=== PATIENT | female | born 1995 | race Caucasian/White ===

== ENCOUNTER 2016-04-27 15:56 | Emergency (ER) | payer BC, OTHER ==
--- NOTE | 2016-04-27 18:59 | EDDOCDS ---
Nurse's Notes [facility] Name: Rich Becerra Age: 20 yrs Sex: Female : 1995 Arrival Date: 04/27/2016 Time: 15:56 Bed TR8 Private MD: NO PRIMARY PHYSICIAN, . Diagnosis: Acute upper respiratory infections of multiple and unspecified sites;Acute bronchitis Presentation: 04/27 16:05 Presenting complaint: Patient states: since last night she has had left facial pain and kcs right low back pain - also has a harsh cough. Mechanism of Injury: No Mechanism of Injury. Adult Sepsis Screening: The patient does not have new or worsening altered mentation. Patient's respiratory rate is less than 22. Systolic blood pressure is greater than 100. Patient has a qSOFA score of 0- Negative Sepsis Screen. Suicide/Homicide risk assessment- the patient denies having any suicidal and/or homicidal ideations and does not present with any other emotional, behavioral or mental health complaints. 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 Transition of care: patient was not received from another setting of care. 16:05 Acuity: AARON Level 4 kcs 16:05 Method Of Arrival: Walkin/Carried/Asstd kcs 18:58 Acute neurological deficits are not present. aa3 Triage Assessment: 16:07 General: Appears comfortable, well developed, well nourished, well groomed, Behavior is kcs cooperative, pleasant. Pain: Location: left face = 8/10 and right low back = 8/10. Pt Declines HIV testing. Neurological: Level of Consciousness is awake, alert. Respiratory: Airway is patent Respiratory effort is even, unlabored, Respiratory pattern is regular, symmetrical. Derm: Skin is intact, is healthy with good turgor, Skin is dry, Skin is normal. 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 none - PMHx: Asthma; - PSHx: Appendectomy; Arthroscopy, Knee- Right; - Social history: Smoking status: Patient uses tobacco products, light tobacco smoker. No barriers to communication noted, The patient speaks fluent British. - Family history: Not pertinent. - : The pt / caregiver states he / she is not on anticoagulants. Home medication list is obtained from the patient. - Exposure Risk Screening:: None identified. Screenin:55 Screening information is obtained from the patient. Fall risk: No risks identified. aa3 Assistance ADL's: requires no assistance with activities of daily living. Abuse/DV Screen: The patient / caregiver reports he/she is: not in a situation that causes fear, pain or injury. Nutritional screening: No deficits noted. Advance Directives: Currently, there is no health care proxy. There is no active DNR order. home support is adequate. Assessment: 18:55 General: Appears in no apparent distress, comfortable, Behavior is appropriate for age, aa3 cooperative. Neurological: Level of Consciousness is awake, alert, Oriented to person, place, time. Cardiovascular: Capillary refill < 3 seconds. Respiratory: Airway is patent Respiratory effort is even, unlabored, Respiratory pattern is regular, symmetrical. Musculoskeletal: No deficits noted. Vital Signs: 15:58 BP 127 / 73; Pulse 108; Resp 18 S; Temp 99.6(O); Pulse Ox 97% on R/A; Weight 74.84 kg gr2 (M); Height 5 ft. 3 in. (160.02 cm) (R); Pain 5/10; 18:55 BP 129 / 72; Pulse 98; Resp 18 S; Temp 98.3(TE); Pulse Ox 99% ; Pain 5/10; aa3 15:58 Body Mass Index 29.23 (74.84 kg, 160.02 cm) gr2 Vitals: 15:58 Log In Time: April 27, 2016 at 15:58. gr2 ED Course: 15:57 Patient visited by Elsy Ferreira. gr2 15:57 Patient moved to Waiting gr2 15:58 NO PRIMARY PHYSICIAN, . is Private Physician. gr2 16:01 Patient visited by Elsy Ferreira. gr2 16:01 Patient moved to Pre RCE gr2 16:06 Triage Initiated kcs 18:12 Patient moved to Triage 1 ms18 18:32 Patient visited by Lisa Ireland RN. ms18 18:39 [facility] Mac[facility]C [facility] cc10 18:39 Heidi Monroe MD is Attending Physician. cc10 18:39 Patient visited by Chalo Macario PA-C. cc10 18:39 Patient visited by Chalo Macario PA-C. cc10 18:46 [facility] is Referral Physician. cc10 18:55 The patient / caregiver is instructed regarding the plan of care and ED course. aa3 18:55 No IV's were initiated during this patient's visit. No procedures done that require aa3 assistance. 18:56 Patient moved to TR8 ms18 Order Results: There are currently no results for this order. Outcome: 18:46 Discharge ordered by Provider. cc10 18:57 Discharge Assessment: Patient awake, alert and oriented x 3. No cognitive and/or aa3 functional deficits noted. Patient verbalized understanding of disposition instructions. Patient patient administered narcotics - no. The following High Risk Discharge criteria are identified: None. Discharged to home ambulatory, with significant other. Condition: good. Discharge instructions given to patient, Instructed on discharge instructions, follow up and referral plans. medication usage, Demonstrated understanding of instructions, medications, Pt was receptive of discharge instructions/ teaching. Prescriptions given X 3. No special radiology studies were completed. Property :Personal belongings accompany Pt. 18:58 Patient left the ED. aa3 Signatures: Nicole Ibarra, RN RN [facility] [place] Elsy Ferreira gr2 Salima Garcia RN RN aa3 Chalo Macario PA-C PA-C cc10 Lisa Ireland,EVELIO RN ms18 MTDD
--- NOTE | 2016-04-27 18:59 | EDDOCDS ---
Physician Documentation [facility] Name: Rich Becerra Age: 20 yrs Sex: Female : 1995 Arrival Date: 04/27/2016 Time: 15:56 Bed TR8 Private MD: NO PRIMARY PHYSICIAN, . Disposition: 04/27/16 18:46 Discharged to Home/Self Care. Impression: Acute upper respiratory infections of multiple and unspecified sites, Acute bronchitis. - Condition is Stable. - Discharge Instructions: Acute Bronchitis, Upper Respiratory Infection, Adult. - Prescriptions for Prednisone 20 mg Oral Tablet - take 1 tablet by ORAL route once daily for 5 days; 5 tablet. benzonatate 200 mg Oral Capsule - take 1 capsule by ORAL route 3 times per day As needed; 30 capsule. Albuterol Sulfate 90 mcg/actuation Inhalation HFA Aerosol Inhaler - inhale 2 puff by INHALATION route every 4 hours As needed; 1 Inhaler. - Medication Reconciliation form. - Follow up: [facility]; When: Call to arrange an appointment; Reason: Wound/Symptom Recheck, Recheck today's complaints, Worsening of conditions, Continuance of care, To establish care. - Problem is an ongoing problem. - Symptoms are unchanged. - Notes: take tylenol as needed for pain. Historical: - Allergies: No known drug Allergies; - Home Meds: 1. none - PMHx: Asthma; - PSHx: Appendectomy; Arthroscopy, Knee- Right; - Social history: Smoking status: Patient uses tobacco products, light tobacco smoker. No barriers to communication noted, The patient speaks fluent Bulgarian. - Family history: Not pertinent. - : The pt / caregiver states he / she is not on anticoagulants. Home medication list is obtained from the patient. - Exposure Risk Screening:: None identified. 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 3 in. (160.02 cm) (R); Pain 5/10; 18:55 BP 129 / 72; Pulse 98; Resp 18 S; Temp 98.3(TE); Pulse Ox 99% ; Pain 5/; aa3 15:58 Body Mass Index 29.23 (74.84 kg, 160.02 cm) gr2 Signatures: Nicole Ibarra RN RN kcs Salima Garcia RN RN aa3 Chalo Macario, PACrystalC PA-C cc10 MTDD
--- NOTE | 2016-04-29 19:59 | EDDOCDS ---
Nurse's Notes [facility] Name: Rich Becerra Age: 20 yrs Sex: Female : 1995 Arrival Date: 04/27/2016 Time: 15:56 Bed TR8 Private MD: NO PRIMARY PHYSICIAN, . Diagnosis: Acute upper respiratory infections of multiple and unspecified sites;Acute bronchitis Presentation: 04/27 16:05 Presenting complaint: Patient states: since last night she has had left facial pain and kcs right low back pain - also has a harsh cough. Mechanism of Injury: No Mechanism of Injury. Adult Sepsis Screening: The patient does not have new or worsening altered mentation. Patient's respiratory rate is less than 22. Systolic blood pressure is greater than 100. Patient has a qSOFA score of 0- Negative Sepsis Screen. Suicide/Homicide risk assessment- the patient denies having any suicidal and/or homicidal ideations and does not present with any other emotional, behavioral or mental health complaints. 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 Transition of care: patient was not received from another setting of care. 16:05 Acuity: AARON Level 4 kcs 16:05 Method Of Arrival: Walkin/Carried/Asstd kcs 18:58 Acute neurological deficits are not present. aa3 Triage Assessment: 16:07 General: Appears comfortable, well developed, well nourished, well groomed, Behavior is kcs cooperative, pleasant. Pain: Location: left face = 8/10 and right low back = 8/10. Pt Declines HIV testing. Neurological: Level of Consciousness is awake, alert. Respiratory: Airway is patent Respiratory effort is even, unlabored, Respiratory pattern is regular, symmetrical. Derm: Skin is intact, is healthy with good turgor, Skin is dry, Skin is normal. 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 none - PMHx: Asthma; - PSHx: Appendectomy; Arthroscopy, Knee- Right; - Social history: Smoking status: Patient uses tobacco products, light tobacco smoker. No barriers to communication noted, The patient speaks fluent Guamanian. - Family history: Not pertinent. - : The pt / caregiver states he / she is not on anticoagulants. Home medication list is obtained from the patient. - Exposure Risk Screening:: None identified. Screenin:55 Screening information is obtained from the patient. Fall risk: No risks identified. aa3 Assistance ADL's: requires no assistance with activities of daily living. Abuse/DV Screen: The patient / caregiver reports he/she is: not in a situation that causes fear, pain or injury. Nutritional screening: No deficits noted. Advance Directives: Currently, there is no health care proxy. There is no active DNR order. home support is adequate. Assessment: 18:55 General: Appears in no apparent distress, comfortable, Behavior is appropriate for age, aa3 cooperative. Neurological: Level of Consciousness is awake, alert, Oriented to person, place, time. Cardiovascular: Capillary refill < 3 seconds. Respiratory: Airway is patent Respiratory effort is even, unlabored, Respiratory pattern is regular, symmetrical. Musculoskeletal: No deficits noted. Vital Signs: 15:58 BP 127 / 73; Pulse 108; Resp 18 S; Temp 99.6(O); Pulse Ox 97% on R/A; Weight 74.84 kg gr2 (M); Height 5 ft. 3 in. (160.02 cm) (R); Pain 5/10; 18:55 BP 129 / 72; Pulse 98; Resp 18 S; Temp 98.3(TE); Pulse Ox 99% ; Pain 5/10; aa3 15:58 Body Mass Index 29.23 (74.84 kg, 160.02 cm) gr2 Vitals: 15:58 Log In Time: April 27, 2016 at 15:58. gr2 ED Course: 15:57 Patient visited by Elsy Ferreira. gr2 15:57 Patient moved to Waiting gr2 15:58 NO PRIMARY PHYSICIAN, . is Private Physician. gr2 16:01 Patient visited by Elsy Ferreira. gr2 16:01 Patient moved to Pre RCE gr2 16:06 Triage Initiated kcs 18:12 Patient moved to Triage 1 ms18 18:32 Patient visited by Lisa Ireland RN. ms18 18:39 Chalo Macario PA-C is [facility]. cc10 18:39 Heidi Monroe MD is Attending Physician. cc10 18:39 Patient visited by Chalo Macario PA-C. cc10 18:39 Patient visited by Chalo Macario PA-C. cc10 18:46 [facility] is Referral Physician. cc10 18:55 The patient / caregiver is instructed regarding the plan of care and ED course. aa3 18:55 No IV's were initiated during this patient's visit. No procedures done that require aa3 assistance. 18:56 Patient moved to TR8 ms18 04/28 13:56 T-Sheet-- Draft Copy was scanned into [employer] and attached to record. gb Order Results: There are currently no results for this order. Outcome: 04/27 18:46 Discharge ordered by Provider. cc10 18:57 Discharge Assessment: Patient awake, alert and oriented x 3. No cognitive and/or aa3 functional deficits noted. Patient verbalized understanding of disposition instructions. Patient patient administered narcotics - no. The following High Risk Discharge criteria are identified: None. Discharged to home ambulatory, with significant other. Condition: good. Discharge instructions given to patient, Instructed on discharge instructions, follow up and referral plans. medication usage, Demonstrated understanding of instructions, medications, Pt was receptive of discharge instructions/ teaching. Prescriptions given X 3. No special radiology studies were completed. Property :Personal belongings accompany Pt. 18:58 Patient left the ED. aa3 Signatures: Nicole Ibarra, RN RN kcs Dahiana Thornton, Reg Reg gb Elsy Ferreira gr2 Salima Garcia,EVELIO RN aa3 Chalo Macario PA-C PA-C cc10 Smith, Mallory,EVELIO RN ms18 Chart Complete MTDD
--- NOTE | 2016-04-29 19:59 | EDDOCDS ---
Physician Documentation [facility] Name: Rich Becerra Age: 20 yrs Sex: Female : 1995 Arrival Date: 04/27/2016 Time: 15:56 Bed TR8 Private MD: NO PRIMARY PHYSICIAN, . Disposition: 04/27/16 18:46 Discharged to Home/Self Care. Impression: Acute upper respiratory infections of multiple and unspecified sites, Acute bronchitis. - Condition is Stable. - Discharge Instructions: Acute Bronchitis, Upper Respiratory Infection, Adult. - Prescriptions for Prednisone 20 mg Oral Tablet - take 1 tablet by ORAL route once daily for 5 days; 5 tablet. benzonatate 200 mg Oral Capsule - take 1 capsule by ORAL route 3 times per day As needed; 30 capsule. Albuterol Sulfate 90 mcg/actuation Inhalation HFA Aerosol Inhaler - inhale 2 puff by INHALATION route every 4 hours As needed; 1 Inhaler. - Medication Reconciliation form. - Follow up: [facility]; When: Call to arrange an appointment; Reason: Wound/Symptom Recheck, Recheck today's complaints, Worsening of conditions, Continuance of care, To establish care. - Problem is an ongoing problem. - Symptoms are unchanged. - Notes: take tylenol as needed for pain. Historical: - Allergies: No known drug Allergies; - Home Meds: 1. none - PMHx: Asthma; - PSHx: Appendectomy; Arthroscopy, Knee- Right; - Social history: Smoking status: Patient uses tobacco products, light tobacco smoker. No barriers to communication noted, The patient speaks fluent Dutch. - Family history: Not pertinent. - : The pt / caregiver states he / she is not on anticoagulants. Home medication list is obtained from the patient. - Exposure Risk Screening:: None identified. 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 3 in. (160.02 cm) (R); Pain 5/10; 18:55 BP 129 / 72; Pulse 98; Resp 18 S; Temp 98.3(TE); Pulse Ox 99% ; Pain 5/10; aa3 15:58 Body Mass Index 29.23 (74.84 kg, 160.02 cm) gr2 MDM: 04/28 13:56 T-Sheet-- Draft Copy was scanned into [employer] and attached to record. gb Signatures: Nicole Ibarra, EVELIO RN kcs Dahiana Thornton, Reg Reg gb Salima Garcia RN RN aa3 Chalo Macario, PACrystalC PALloyd cc10 The chart was reviewed and I authenticate all verbal orders and agree with the evaluation and treatment provided.Attachments: 13:56 T-Sheet-- Draft Copy gb Chart Complete MTDD
--- NOTE | 2016-04-29 19:59 | EDDOCDS ---
Physician Documentation [facility] Name: Rich Becerra Age: 20 yrs Sex: Female : 1995 Arrival Date: 04/27/2016 Time: 15:56 Bed TR8 Private MD: NO PRIMARY PHYSICIAN, . Disposition: 04/27/16 18:46 Discharged to Home/Self Care. Impression: Acute upper respiratory infections of multiple and unspecified sites, Acute bronchitis. - Condition is Stable. - Discharge Instructions: Acute Bronchitis, Upper Respiratory Infection, Adult. - Prescriptions for Prednisone 20 mg Oral Tablet - take 1 tablet by ORAL route once daily for 5 days; 5 tablet. benzonatate 200 mg Oral Capsule - take 1 capsule by ORAL route 3 times per day As needed; 30 capsule. Albuterol Sulfate 90 mcg/actuation Inhalation HFA Aerosol Inhaler - inhale 2 puff by INHALATION route every 4 hours As needed; 1 Inhaler. - Medication Reconciliation form. - Follow up: [facility]; When: Call to arrange an appointment; Reason: Wound/Symptom Recheck, Recheck today's complaints, Worsening of conditions, Continuance of care, To establish care. - Problem is an ongoing problem. - Symptoms are unchanged. - Notes: take tylenol as needed for pain. Historical: - Allergies: No known drug Allergies; - Home Meds: 1. none - PMHx: Asthma; - PSHx: Appendectomy; Arthroscopy, Knee- Right; - Social history: Smoking status: Patient uses tobacco products, light tobacco smoker. No barriers to communication noted, The patient speaks fluent [place]. - Family history: Not pertinent. - : The pt / caregiver states he / she is not on anticoagulants. Home medication list is obtained from the patient. - Exposure Risk Screening:: None identified. 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 3 in. (160.02 cm) (R); Pain 5/10; 18:55 BP 129 / 72; Pulse 98; Resp 18 S; Temp 98.3(TE); Pulse Ox 99% ; Pain 5/10; aa3 15:58 Body Mass Index 29.23 (74.84 kg, 160.02 cm) gr2 MDM: 04/28 13:56 T-Sheet-- Draft Copy was scanned into [employer] and attached to record. gb Signatures: Nicole Ibarra, EVELIO RN kcs Dahiana Thornton, Reg Reg gb Salima Garcia RN RN aa3 Chalo Macario, PACrystalC PALloyd cc10 The chart was reviewed and I authenticate all verbal orders and agree with the evaluation and treatment provided.Attachments: 13:56 T-Sheet-- Draft Copy gb Chart Complete MTDD
[2016-06-09] MEDS ORDERED: unknown antibiotic (14:50)
[2016-06-09] MEDS ORDERED: TRAM50TA2 PO (17:39)
[2016-06-09] MEDS ORDERED: BACT800T5 PO (17:39)
== END 2016-04-27 18:58 | disposition home or self-care (01) ==
LOC: M ED 15:56
DX: J20.9 Acute bronchitis, unspecified (principal); J06.9 Acute upper respiratory infection, unspecified; M54.5 Low back pain; J45.909 Unspecified asthma, uncomplicated; F17.210 Nicotine dependence, cigarettes, uncomplicated

== ENCOUNTER 2016-05-25 12:08 | Inpatient (IN) | payer BC, OTHER ==
[~2016-05-25] VITALS: Ht 160 cm; Wt 86.2 kg
[2016-05-25] MEDS ORDERED: ONDANSETRON 4MG/2ML VIAL (J2405) IV ONE ×3 (12:45→16:45)
[2016-05-25] MEDS ORDERED: MORPHINE 4 MG/ML 1ML SYRINGE IV ONE ×2 (12:45→15:30)
[2016-05-25] MEDS ORDERED: NS 1,000 ML IV ONE ×2 (13:00→16:30)
[2016-05-25] MEDS ORDERED: KETOROLAC 30 MG/ML VIAL (J1885) IV ONE (13:15)
[2016-05-25 13:34] LABS: BASO # 0.1 K/mm3 (0.0-0.2); BASO % 0.6 % (0.0-1.0); EOS # 0.2 K/mm3 (0.0-0.50); EOS % 1.8 % (0.0-3.0); LARGE UNSTAINED CELL # 0.2 K/mm3 (0.0-0.4); LARGE UNSTAINED CELL % 1.6 % (0.0-4.0); LYMPH # 1.6 K/mm3 (1.5-6.5); LYMPH % 14.6 % (24.0-44.0); MEAN CORPUSCULAR HEMOGLOBIN 29.3 pg (27.0-33.0); MEAN CORPUSCULAR VOLUME 88.7 fl (80.0-96.0); MONO # 0.4 K/mm3 (0.0-0.8); MONO % 3.4 % (0.0-5.0); NEUTROPHILS # 8.4 K/mm3 (1.8-7.7); PLATELET COUNT, AUTOMATED 152 k/mm3 (150-450); RED CELL DISTRIBUTION WIDTH 14.1 % (11.5-14.5); WHITE BLOOD COUNT 10.7 K/mm3 (4.0-10.0)
[2016-05-25 13:59] LABS: ALBUMIN 3.6 GM/DL (3.2-5.2); ALKALINE PHOSPHATASE 88 U/L (45-117); ALT/SGPT 52 U/L (12-78); ANION GAP 8 MEQ/L (8-16); AST/SGOT 31 U/L (15-37); BILIRUBIN,TOTAL 0.5 MG/DL (0.2-1.0); BLOOD UREA NITROGEN 6 MG/DL (7-18); CALCIUM LEVEL 7.8 MG/DL (8.5-10.1); CARBON DIOXIDE LEVEL 21 MEQ/L (21-32); CHLORIDE LEVEL 110 MEQ/L (98-107); CREATININE FOR GFR 0.79 MG/DL (0.55-1.02); GLOMERULAR FILTRATION RATE > 60.0 (>60); GLUCOSE, FASTING 113 MG/DL (70-105); POTASSIUM SERUM 4.3 MEQ/L (3.5-5.1); SODIUM LEVEL 139 MEQ/L (136-145); TOTAL PROTEIN 7.2 GM/DL (6.4-8.2)
--- NOTE | 2016-05-25 14:07 | REP ---
Clinical: Right flank pain. Findings: Mild right-sided obstructive uropathy including edematous enlargement to the right kidney with mild perinephric and periureteral stranding as well as hydroureteronephrosis is secondary to a 3 mm calculus in the distal right ureter (images 121 - 122). A 2 mm nonobstructing right intrarenal calculus is also identified (image 62). The left kidney and ureter as well as bladder appear normal. Liver, spleen, pancreas, gallbladder, bilateral adrenal glands are normal for noncontrast evaluation. The enteric system is without obstruction or acute inflammatory process. Evidence for prior appendectomy. Pelvis demonstrates normal bladder and age-appropriate uterus/adnexa. No pelvic fluid or ascites. No obvious adenopathy. No free air. Abdominal aorta without aneurysm. Musculoskeletal structures are intact. Lung bases are clear. Impression: Mild acute right-sided obstructive uropathy with a 3 mm calculus in the distal right ureter and 2 mm nonobstructing calculus in the right kidney. Normal left kidney/ureter and bladder. Signed by Tevin Robledo MD 05/25/2016 01:59 P
[2016-05-25] MEDS ORDERED: TAMSULOSIN 0.4 MG CAP PO ONE (15:15)
[2016-05-25] MEDS ORDERED: PHENAZOPYRIDINE 100 MG TAB PO ONE (15:15)
[2016-05-25] MEDS ORDERED: NITROFURANTOIN (MACROBID) 100 MG CAP PO ONE (15:15)
[2016-05-25] MEDS ORDERED: FLOM5CAP PO (15:17)
[2016-05-25] MEDS ORDERED: cefTRIAXone SOD 1 GM in D5W MINI-BAG PLUS 50 ML IV ONE (16:30)
[2016-05-25] MEDS ORDERED: ACETAMINOPHEN 325 MG TAB PO ONE (16:30)
[2016-05-25] MEDS ORDERED: METOCLOPRAMIDE INJ 10MG/2ML VIAL (J2765) IV ONE (16:45)
[2016-05-25] MEDS ORDERED: MORPHINE 2 MG/ML 1ML SYRINGE IV PRN (18:00)
[2016-05-25] MEDS ORDERED: PERCOCET 5MG/325MG TAB PO PRN ×2 (18:00→21:15)
[2016-05-25] MEDS ORDERED: ACETAMINOPHEN TAB 650MG DOSE (2X325MG) PO PRN (18:00)
[2016-05-25] MEDS ORDERED: ONDANSETRON 4MG/2ML VIAL (J2405) IV PRN ×3 (18:00→21:30)
[2016-05-25] MEDS ORDERED: IPRATROPIUM 0.5MG/ALBUTEROL 2.5MG INH SOL UD 3ML (DUONEB)(J7620) NEB PRN (18:15)
[2016-05-25] MEDS: NS 1,000 ML IV SCH ×2 (18:30→22:21)
[2016-05-25] MEDS ORDERED: fentaNYL 250 MCG/5 ML INJECTION (J3010) As Ordered ONE (19:43)
[2016-05-25] MEDS ORDERED: LIDOCAINE 2% INJ 100 MG/5 ML SDV (FOR ANES.) As Ordered ONE (19:43)
[2016-05-25] MEDS ORDERED: dexameTHASONE 4 MG/ML 1ML VIAL (J1100) As Ordered ONE ×2 (19:43→19:44)
[2016-05-25] MEDS ORDERED: PROPOFOL 200 MG/20 ML VIAL As Ordered ONE (19:43)
[2016-05-25] MEDS ORDERED: MIDAZOLAM INJ 2 MG/2 ML VIAL (J2250) As Ordered ONE (19:43)
[2016-05-25] MEDS ORDERED: CONRAY-60 60% 50ML VIAL (Q9961) As Ordered ONE (19:49)
[2016-05-25] MEDS ORDERED: GENTAMICIN SULF INJ 80MG/2ML VIAL (J1580) As Ordered ONE (20:08)
[2016-05-25] MEDS ORDERED: ONDANSETRON 4MG/2ML VIAL (J2405) As Ordered ONE ×2 (20:21→21:28)
[2016-05-25] MEDS ORDERED: PHENYLephrine HCL 500 MCG/5 ML (100MCG/ML) SYRINGE (J2370) As Ordered ONE (20:22)
[2016-05-25] MEDS: MEPERIDINE INJ 25 MG/ML VIAL (J2175) IV PRN ×2 (20:35→20:50)
[2016-05-25] MEDS ORDERED: MEPERIDINE INJ 25 MG/ML VIAL (J2175) As Ordered ONE (20:39)
[2016-05-25] MEDS ORDERED: SENOKOT S TAB PO SCH (21:00)
[2016-05-25 21:13] LABS: MEAN CORPUSCULAR HEMOGLOBIN 30.5 pg (27.0-33.0); MEAN CORPUSCULAR HGB CONC 33.9 g/dl (32.0-36.5); MEAN CORPUSCULAR VOLUME 89.9 fl (80.0-96.0); WHITE BLOOD COUNT 9.8 K/mm3 (4.0-10.0)
[2016-05-25] MEDS ORDERED: LR 1,000 ML IV SCH (21:15)
[2016-05-25] MEDS ORDERED: fentaNYL 100 MCG/2 ML INJECTION (J3010) IV PRN (21:15)
[2016-05-25] MEDS ORDERED: MORPHINE 4 MG/ML 1ML SYRINGE IV PRN (21:30)
[2016-05-25] MEDS ORDERED: oxyCODONE 5MG TAB PO PRN (21:30)
[2016-05-25] MEDS ORDERED: SODIUM CHLORIDE 0.9% 1000 ML IV ONE (21:45)
[2016-05-25] MEDS ORDERED: ACETAMINOPHEN TAB 650MG DOSE (2X325MG) As Ordered ONE (21:46)
[2016-05-25 21:54] LABS: CALCIUM LEVEL 7.4 MG/DL (8.5-10.1); GLOMERULAR FILTRATION RATE 51.4 (>60); POTASSIUM SERUM 3.7 MEQ/L (3.5-5.1)
--- NOTE | 2016-05-25 22:01 | RO ---
DATE OF PROCEDURE: 05/25/2016 PREPROCEDURE DIAGNOSIS: Right hydronephrosis, right distal ureteral stone and sepsis. POSTPROCEDURE DIAGNOSIS: Right hydronephrosis, right distal ureteral stone and sepsis. PROCEDURE: Cystoscopy, right retrograde pyelogram, right double J stent, #6-Bruneian [place] Cook. SURGEON: Dr. Dago Jiménez COMMUNITY DEVELOPMENT OFFICER: Vel Marie, PGY-3, resident urology. ANESTHESIA: General. FINDINGS: Right hydronephrosis. Right distal ureteral stone, 3 mm in diameter, and purulent urine coming out through the right ureter after catheterization. COMPLICATIONS: None. ESTIMATED BLOOD LOSS: N/A. HISTORY OF THE PRESENT ILLNESS: This is a 20-year-old female patient with fever, 102, nausea and vomiting. She has severe right flank pain. She has a stone in the distal ureter with right hydronephrosis. For this reason she was taken to the OR as an emergency and she consented for cystoscopy, right retrograde pyelogram, right double J stent, #6-Bruneian, [place] Cook. DESCRIPTION OF PROCEDURE: With the patient under general anesthesia in supine modified low lithotomy position, after prepping and draping the area of concern, which included the entire genitalia and abdomen, we started by introducing a #23-Bruneian cystoscope with a 30-degree lens. The urethra and bladder neck were totally normal. The bladder had no tumors, no stones, no foreign objects. Both ureteral orifices were seen. We then placed a #5-Bruneian Pollack catheter into the right ureteral orifice and did a retrograde pyelogram. We could see dilated right ureter and kidney. For this reason, we passed a guidewire up to the kidney and passed the Pollack catheter up to the renal pelvis. We collected a urine sample for actually sending it for a urine culture of the right renal pelvis urine. The urine was hematuric and also with some aspect of infection and pus. For this reason we then proceeded to actually take the Pollack catheter out, leaving the guidewire behind. Following the guidewire we decided to place a right double J stent, #6-Bruneian [place] Cook up to the kidney. Once the stent was in good position we took the guidewire out and we could see the curl in the kidney and the curl in the bladder. We emptied the bladder and took the cystoscope out. PLAN: The patient will be admitted by the hospitalist service, Dr. Scruggs. She will receive IV antibiotics until she has no fevers at all. Once the urine cultures and sensitivities come out she will receive specific antibiotic therapy. Once she has no fevers, she will be able to be discharged home with oral antibiotic and followup at [facility] with Dr. Dago Jiménez, myself. At that moment in time, once she has a urine culture negative and she is off this septic episode from urosepsis, we will do treatment of the right distal stone and the right kidney stone at that moment in time electively. There were no complications during surgery.
[2016-05-25 22:07] LABS: CREATININE FOR GFR 1.38 MG/DL (0.55-1.02)
[2016-05-25 23:15] VITALS: BP 120/53
[2016-05-25 23:45] VITALS: BP 112/54
[2016-05-26] VITALS (9 sets, daily range): BP systolic 98–125; BP diastolic 53–67
[2016-05-26] MEDS: ACETAMINOPHEN 650MG ER TAB (TYLENOL ARTHRITIS) PO SCH ×4 (00:34→21:23)
[2016-05-26] MEDS ORDERED: POTASSIUM CHLORIDE 10 MEQ SR TABLET PO ONE (04:00)
[2016-05-26 04:44] LABS: MEAN CORPUSCULAR HEMOGLOBIN 29.2 pg (27.0-33.0); MEAN CORPUSCULAR HGB CONC 32.7 g/dl (32.0-36.5); MEAN CORPUSCULAR VOLUME 89.4 fl (80.0-96.0); RED CELL DISTRIBUTION WIDTH 14.4 % (11.5-14.5); WHITE BLOOD COUNT 20.8 K/mm3 (4.0-10.0)
[2016-05-26 05:06] LABS: ANION GAP 8 MEQ/L (8-16); BLOOD UREA NITROGEN 7 MG/DL (7-18); CALCIUM LEVEL 6.7 MG/DL (8.5-10.1); CARBON DIOXIDE LEVEL 24 MEQ/L (21-32); CHLORIDE LEVEL 112 MEQ/L (98-107); CREATININE FOR GFR 1.17 MG/DL (0.55-1.02); GLOMERULAR FILTRATION RATE > 60.0 (>60); GLUCOSE, FASTING 167 MG/DL (70-105); MAGNESIUM LEVEL 1.6 MG/DL (1.8-2.4); POTASSIUM SERUM 3.9 MEQ/L (3.5-5.1); SODIUM LEVEL 144 MEQ/L (136-145)
[2016-05-26] MEDS: CEFEPIME HCL 2 GM in D5W MINI-BAG PLUS 50 ML IV SCH ×2 (05:11→18:08)
[2016-05-26] MEDS ORDERED: NS 1,000 ML IV ONE (06:30)
[2016-05-26] MEDS ORDERED: MAG SULF 1GM/100ML (MAG RUN) 1 GM in APPROPRIATE DILUENT 1 EA IV ONE ×2 (06:30→13:15)
--- NOTE | 2016-05-26 07:57 | REP ---
Clinical: Hydronephrosis. Stent placement. Technique: Intraoperative fluoroscopic images during retrograde pyelogram and stent placement. Findings: Two intraoperative fluoroscopic images demonstrate mild right-sided hydroureteronephrosis without obvious obstructing lesion. Final image demonstrates a right ureteral stent extending from the kidney to the bladder. Total fluoroscopic time 1 minute 10 seconds. Impression: Mild right-sided hydronephrosis status post right ureteral stent placement. Signed by Tevin Robledo MD 05/26/2016 07:49 A
[2016-05-26] MEDS: NS 1,000 ML IV SCH ×3 (08:37→21:23)
[2016-05-26] MEDS: PANTOPRAZOLE 40MG INJ (PROTONIX) (C9113) IV SCH (09:08)
--- NOTE | 2016-05-26 13:11 | IPNPDOC ---
Date Seen The patient was seen on 05/26/16. Progress Note At the time of this note there is no H&P available in the chart SUBJECTIVE: Patient tells me that her pain is improved but not completely resolved she otherwise denies any other complaints she denies fevers chills chest pain nausea vomiting OBJECTIVE PHYSICAL EXAMINATION: VITAL SIGNS: Please see below. GENERAL: Tired young female in no acute distress HEENT: Pupils are equally round reactive to light she has moist pedis membranes CARDIOVASCULAR: S1-S2. RESPIRATORY: Good auscultation. ABDOMINAL: No CVA tenderness mild suprapubic tenderness bowel sounds present abdomen soft EXTREMITIES: No Cyanosis or edema LABORATORY DATA: Leukocytosis improved thrombocytopenia Please see below. MICROBIOLOGY: Please see below. IMAGING: CT scan at time of admission: Mild acute right-sided obstructive uropathy with a 3 mm calculus in the distal right ureter and 2 mm nonobstructing calculus in the right kidney. Normal left kidney/ureter and bladder. DVT prophylaxis ordered?: Sequentials teds early ambulation ASSESSMENT AND PLAN: This is a 20-year-old female with right-sided hydronephrosis with obstructive uropathy and sepsis secondary urinary source. PROBLEMS: 1. Severe Sepsis secondary to urinary source: The patient was taken to the OR by urology whose help is appreciated stent was placed the patient's renal function is improving we'll continue with IV fluids lactic acidosis resolving she is afebrile we will follow up her cultures and narrow antibiotic spectrum as appropriate. We'll continue monitor closely I suspect the patient may may be able to be transition to by mouth antibiotics and discharge within the next 48- 72 hours with close follow-up with urology. DISPOSITION: We'll continue to monitor closely. VS, I&O, 24H, Fishbone Vital Signs/I&O Vital Signs Date Time Temp Pulse Resp B/P Pulse Ox O2 Delivery O2 Flow Rate FiO2 05/26/16 12:00 98.0 73 20 113/57 97 Room Air 05/26/16 08:00 2.0 I&O- Last 24 Hours up to 6 AM 05/26/16 06:00 Intake Total 3420 ml Output Total 1855 ml Balance 1565 ml Laboratory Data 24H LABS Laboratory Tests 2 05/25/16 13:41: Urine Amorphous Sediment , Urine Appearance TURBIDH, Urine Color MARIELA, Urine pH 5.0, Urine Specific [place] 1.025, Urine Protein 1+H, Urine Glucose (UA) NEGATIVE, Urine Ketones TRACEH, Urine Urobilinogen 0.2, Urine Bilirubin NEGATIVE , Urine Leukocyte Esterase 3+H, Urine Bacteria (Auto) 3+H, Urine Blood 1+H, Urine Calcium Carbonate Cryst(Auto) , Urine Calcium Oxalate Cryst (Auto) , Urine Calcium Phosphate Cristela (Auto) , Urine Cellular Casts , Urine Cystine Crystals , Urine Granular Casts (Auto) , Urine Hyaline Casts (Auto) 0, Urine Leucine Crystals , Urine Mucus (Auto) LARGE, Urine Nitrite POSITIVE, Urine Oval Fat Bodies (Auto) , Urine RBC (Auto) 14H, Urine Renal Epithelial Cells , Urine Sperm (Auto) , Urine Squamous Epithelial Cells 89, Urine Transitional Epithelial Cells , Urine Trichomonas (Auto) , Urine Triple Phosphate Cryst (Auto ) , Urine Tyrosine Crystals , Urine Uric Acid Crystals (Auto) , Urine WBC (Auto ) 126H, Urine Waxy Casts (Auto) , Urine Yeast-Like Cells (Auto) 05/25/16 16:38: Lactic Acid Level 2.2*H 05/25/16 20:55: Anion Gap 10, Blood Urea Nitrogen 6L, Creatinine 1.38#H, Sodium Level 140, Potassium Level 3.7, Chloride Level 108H, Carbon Dioxide Level 22, Calcium Level 7.4L, Glomerular Filtration Rate 51.4L, Lactic Acid Followup at 4 Hours 3.9*H 05/26/16 04:35: Lactic Acid Level 4.1*H, Anion Gap 8, Blood Urea Nitrogen 7, Creatinine 1.17H, Sodium Level 144, Potassium Level 3.9, Chloride Level 112H, Carbon Dioxide Level 24, Calcium Level 6.7L, Glomerular Filtration Rate > 60.0, Magnesium Level 1.6L 05/26/16 09:25: Lactic Acid Level 2.5*H CBC/BMP Laboratory Tests 05/25/16 20:55 Calcium Level 7.4 L, Red Blood Count 4.24, Mean Corpuscular Volume 89.9, Mean Corpuscular Hemoglobin 30.5, Mean Corpuscular Hemoglobin Concent 33.9, Red Cell Distribution Width 14.0 05/26/16 04:35 Calcium Level 6.7 L, Red Blood Count 3.98 L, Mean Corpuscular Volume 89.4, Mean Corpuscular Hemoglobin 29.2, Mean Corpuscular Hemoglobin Concent 32.7, Red Cell Distribution Width 14.4 Microbiology Microbiology 05/26/16 Blood Culture, Received Pending 05/25/16 Blood Culture - Preliminary, Resulted 05/25/16 Blood Culture - Preliminary, Resulted 05/25/16 Urine Culture, Received Pending 05/25/16 Urine Culture, Received Pending GANGA RICHARD MD May 26, 2016 13:11
[2016-05-26] MEDS ORDERED: cefTRIAXone SOD 2 GM in D5W MINI-BAG PLUS 50 ML IV SCH (17:00)
--- NOTE | 2016-05-26 19:52 | HPE ---
DATE OF ADMISSION: 05/25/2016 PRIMARY CARE PROVIDER: None. UROLOGIST: Dr. Jiménez CHIEF COMPLAINT: Right-sided flank pain. HISTORY OF PRESENT ILLNESS: This is a 20-year-old female patient with no significant underlying medical history other than questionable asthma and the patient presented with acute onset of right-sided flank pain that started this morning with subjective fevers and chills with increased urinary frequency and was subsequently presented to the emergency room and found to be septic with f ever and tachycardia and diagnosed with urinary tract infection with obstructive uropathy, right-sided with stones. The patient reported last episode of urinary tract infection (UTI) was a year ago during her . Denies any chest pain, pressure or discomfort, shortness of breath. Denies any abdominal pain. Reported nausea and vomiting times three. Urology was consulted by emergency room. The patient baseline healthy with no coronary history. METS greater than 4. Works at [employer], [place], and is medically optimized for surgery. Case discussed with Dr. Jiménez and Dr. Call. Agree to admit the patient given urology will continue to evaluate the patient on a day-to-day basis until the patient is discharged. The patient will be taken to the operating room for cystoscopy and stem placement as per Dr. Jiménez and he and his colleague will continue to follow this patient during the course of this admission. ALLERGIES: No known drug allergies. PAST MEDICAL HISTORY: Questionable asthma. PAST SURGICAL HISTORY: Appendectomy. SOCIAL HISTORY: The patient is employed. Smokes 5 cigarettes a day. Denies alcohol drinking. REVIEW OF SYSTEMS: Negative except for those mentioned in the history of present illness. HOME MEDICATION: None. PHYSICAL EXAMINATION: Temperature 102.4, pulse 111, respirations 20, blood pressure 138/61, pulse oximetry 97% on room air. GENERAL: The patient is alert and oriented times three in no acute distress. HEENT: Normocephalic, atraumatic. PULMONARY: Bilateral clear to auscultation. CARDIAC: Mild tachycardia, regular. ABDOMEN: Soft, nontender, nondistended. Right-sided costovertebral angle (CVA) tenderness. EXTREMITIES: No edema in bilateral lower extremities. LABORATORY: White blood count (WBC) 10.7, hemoglobin and hematocrit 13.9/42.2, platelets 152. Chemistry: Sodium 139, potassium 4.3, chloride 110, bicarbonate 21, BUN 6, creatine 0.79, lactic acid 2.2. Lipase negative. ASSESSMENT AND PLAN: This is a 20-year-old female patient with questionable history of asthma, admitted for obstructive uropathy with sepsis secondary to urinary tract infection (UTI). PROBLEMS: 1. Sepsis secondary to urinary tract infection (UTI) with obstructive uropathy due to impacted stone. Urology, Dr. Jiménez consulted. Will be taken to the OR for cystoscopy with stent placement. On Rocephin, IV fluids for aggressive hydration, boluses have been ordered. Followup lactic acid. Followup vital signs. Telemetry monitoring for sinus tachycardia. Followup cultures. Further recommendation and management as per urology. 2. Sinus tachycardia due to underlying infection. Continue to monitor on the telemetry. 3. Smoking, counseling provided. 4. Asthma. The patient is not having any wheeze. DuoNeb as needed. 5. Deep vein thrombosis (DVT) prophylaxis with Venodyne sequential compression device and early ambulation. Will avoid pharmacological anticoagulation given the patient is going for cystoscopy with stent placement with possible hematuria. DISPOSITION: Pending clinical improvement. Urology followup.
[2016-05-27] MEDS: NS 1,000 ML IV SCH ×4 (04:11→20:29)
[2016-05-27] MEDS: CEFEPIME HCL 2 GM in D5W MINI-BAG PLUS 50 ML IV SCH ×2 (04:17→17:51)
[2016-05-27 05:23] LABS: MEAN CORPUSCULAR HEMOGLOBIN 29.5 pg (27.0-33.0); MEAN CORPUSCULAR HGB CONC 33.3 g/dl (32.0-36.5); MEAN CORPUSCULAR VOLUME 88.6 fl (80.0-96.0); RED CELL DISTRIBUTION WIDTH 14.7 % (11.5-14.5); WHITE BLOOD COUNT 15.2 K/mm3 (4.0-10.0)
[2016-05-27 05:38] LABS: ANION GAP 4 MEQ/L (8-16); BLOOD UREA NITROGEN 7 MG/DL (7-18); CALCIUM LEVEL 7.2 MG/DL (8.5-10.1); CARBON DIOXIDE LEVEL 24 MEQ/L (21-32); CHLORIDE LEVEL 114 MEQ/L (98-107); CREATININE FOR GFR 0.67 MG/DL (0.55-1.02); GLOMERULAR FILTRATION RATE > 60.0 (>60); GLUCOSE, FASTING 110 MG/DL (70-105); MAGNESIUM LEVEL 2.1 MG/DL (1.8-2.4); POTASSIUM SERUM 4.3 MEQ/L (3.5-5.1); SODIUM LEVEL 142 MEQ/L (136-145)
[2016-05-27 05:45] VITALS: BP 135/77
[2016-05-27] MEDS: ACETAMINOPHEN 650MG ER TAB (TYLENOL ARTHRITIS) PO SCH ×3 (05:51→22:11)
[2016-05-27 07:30] VITALS: BP 119/63
[2016-05-27] MEDS: PANTOPRAZOLE 40MG INJ (PROTONIX) (C9113) IV SCH (08:44)
[2016-05-27] MEDS: IBUPROFEN 400 MG TAB PO SCH ×3 (08:44→22:11)
--- NOTE | 2016-05-27 10:01 | IPNPDOC ---
Date Seen The patient was seen on 05/27/16. Progress Note SUBJECTIVE: Patient tells me that her pain is improved she has very little pain on her right flank and has no suprapubic pain any further. The patient does tell me that she woke with some pain on the right side of her neck after sleeping awkwardly which is the only pain that she really has bothering her at this point OBJECTIVE PHYSICAL EXAMINATION: VITAL SIGNS: Please see below. GENERAL: Tired young female in no acute distress HEENT: Pupils are equally round reactive to light she has moist mucous membranes CARDIOVASCULAR: S1-S2. Regular RESPIRATORY: Clear to auscultation. ABDOMINAL: No CVA tenderness no suprapubic tenderness, bowel sounds present abdomen soft EXTREMITIES: No Cyanosis or edema LABORATORY DATA: Leukocytosis improved thrombocytopenia improving Please see below. MICROBIOLOGY: Pansensitive Escherichia coli and urine cultures from 05/25 Please see below. IMAGING: CT scan at time of admission: Mild acute right-sided obstructive uropathy with a 3 mm calculus in the distal right ureter and 2 mm nonobstructing calculus in the right kidney. Normal left kidney/ureter and bladder. DVT prophylaxis ordered?: Sequentials teds early ambulation ASSESSMENT AND PLAN: This is a 20-year-old female with right-sided hydronephrosis with obstructive uropathy and severe sepsis secondary urinary source. PROBLEMS: 1. Severe Sepsis secondary to urinary source: The patient was taken to the OR by urology whose help is appreciated a double-J stent was placed the patient's renal function is improving we'll continue with IV fluids lactic acidosis resolving she is afebrile we will follow up her cultures and narrow antibiotic spectrum as appropriate I think she could likely be transitioned to by mouth antibiotics tomorrow potentially discharged home tomorrow with urology follow- up. Given that she does have gram-negative domingo bacteremia I would suggest to complete at least 14 day course of antibiotics. DISPOSITION: We'll transfer to general medical surgical floor VS, I&O, 24H, Fishbone Vital Signs/I&O Vital Signs Date Time Temp Pulse Resp B/P Pulse Ox O2 Delivery O2 Flow Rate FiO2 05/27/16 07:30 97.4 65 20 119/63 97 Room Air 05/26/16 08:00 2.0 I&O- Last 24 Hours up to 6 AM 05/27/16 06:00 Intake Total 7260 ml Output Total 4000 ml Balance 3260 ml Laboratory Data 24H LABS Laboratory Tests 2 05/26/16 13:45: Lactic Acid Followup at 4 Hours 2.2*H 05/27/16 05:02: Anion Gap 4L, Blood Urea Nitrogen 7, Creatinine 0.67, Sodium Level 142, Potassium Level 4.3, Chloride Level 114H, Carbon Dioxide Level 24, Calcium Level 7.2L, Glomerular Filtration Rate > 60.0, Magnesium Level 2.1 CBC/BMP Laboratory Tests 05/27/16 05:02 Calcium Level 7.2 L, Red Blood Count 3.61 L, Mean Corpuscular Volume 88.6, Mean Corpuscular Hemoglobin 29.5, Mean Corpuscular Hemoglobin Concent 33.3, Red Cell Distribution Width 14.7 H Microbiology Microbiology 05/26/16 Blood Culture - Preliminary, Resulted No growth after 24 hours . All specim... 05/25/16 Blood Culture - Preliminary, Resulted 05/25/16 Blood Culture - Preliminary, Resulted 05/25/16 Urine Culture - Final, Complete Escherichia Coli 05/25/16 Urine Culture - Final, Complete Escherichia Coli GANGA RICHARD MD May 27, 2016 10:01
[2016-05-27 13:20] VITALS: BP 131/72
[2016-05-27] MEDS: valACYclovir HCL 500 MG TAB PO SCH (20:29)
[2016-05-27 22:00] VITALS: BP 144/88
[2016-05-27] MEDS ORDERED: IPRATROPIUM 0.5MG/ALBUTEROL 2.5MG INH SOL UD 3ML (DUONEB)(J7620) NEB PRN (22:45)
[2016-05-27] MEDS: IPRATROPIUM 0.5MG/ALBUTEROL 2.5MG INH SOL UD 3ML (DUONEB)(J7620) NEB SCH (22:55)
[2016-05-27] MEDS ORDERED: hydrOXYzine 25 MG TAB PO ONE (23:00)
[2016-05-28] MEDS: NS 1,000 ML IV SCH (04:05)
[2016-05-28] MEDS: CEFEPIME HCL 2 GM in D5W MINI-BAG PLUS 50 ML IV SCH (04:05)
[2016-05-28] MEDS: IBUPROFEN 400 MG TAB PO SCH (05:45)
[2016-05-28] MEDS: ACETAMINOPHEN 650MG ER TAB (TYLENOL ARTHRITIS) PO SCH (05:45)
[2016-05-28 06:00] VITALS: BP 122/74
[2016-05-28 06:04] LABS: ANION GAP 5 MEQ/L (8-16); BLOOD UREA NITROGEN 6 MG/DL (7-18); CALCIUM LEVEL 7.2 MG/DL (8.5-10.1); CARBON DIOXIDE LEVEL 24 MEQ/L (21-32); CHLORIDE LEVEL 113 MEQ/L (98-107); GLOMERULAR FILTRATION RATE > 60.0 (>60); GLUCOSE, FASTING 87 MG/DL (70-105); MAGNESIUM LEVEL 1.8 MG/DL (1.8-2.4); MEAN CORPUSCULAR HEMOGLOBIN 29.6 pg (27.0-33.0); MEAN CORPUSCULAR HGB CONC 33.1 g/dl (32.0-36.5); MEAN CORPUSCULAR VOLUME 89.3 fl (80.0-96.0); POTASSIUM SERUM 4.1 MEQ/L (3.5-5.1); RED CELL DISTRIBUTION WIDTH 14.9 % (11.5-14.5); SODIUM LEVEL 142 MEQ/L (136-145); WHITE BLOOD COUNT 6.4 K/mm3 (4.0-10.0)
[2016-05-28] MEDS: IPRATROPIUM 0.5MG/ALBUTEROL 2.5MG INH SOL UD 3ML (DUONEB)(J7620) NEB SCH (08:01)
[2016-05-28] MEDS ORDERED: CIPR500T89 PO (08:52)
[2016-05-28] MEDS: PANTOPRAZOLE 40MG INJ (PROTONIX) (C9113) IV SCH ×2 (10:24→10:25)
[2016-05-28] MEDS: valACYclovir HCL 500 MG TAB PO SCH (10:24)
--- NOTE | 2016-05-28 18:11 | DSES ---
DATE OF ADMISSION: 05/25/2016 DATE OF DISCHARGE: 05/28/2016 CONSULTANTS: Dr. Jiménez. PROCEDURES: On 05/25/2016, cystoscopy with right double-J stent placement for right hydronephrosis and right distal ureteral stone and sepsis. DISCHARGE DIAGNOSIS: Severe sepsis secondary to obstructive urinary source. SECONDARY DIAGNOSES: 1. Leukocytosis. 2. Thrombocytopenia. 3. Lactic acidosis. 4. Acute renal failure. HOSPITAL COURSE: The patient is a 20-year-old female who was admitted on 05/25. At that time, she did present with complaints of right-sided flank pain. She was found to be in severe sepsis. Eventually her urine cultures and blood cultures returned positive for Escherichia (E.) coli. The patient was taken emergently to the operating room where she had a double-J stent placed for decompression. She was aggressively fluid resuscitated, put on empiric antibiotics. She was noted to have acute renal failure which did improve with fluid hydration and status post stent placement. The patient's lactic acidosis resolved. The patient was also noted to have thrombocytopenia, likely related to severe sepsis. Her platelets dipped to 90. Upon treatment, they did return back to within normal limits. Leukocytosis resolved. Clinically she improved with resolution of her pain. SUBJECTIVE: This morning the patient tells me that she is feeling well. She has no complaints and is ready to go home. She denies chest pain, shortness of breath, flank pain, nausea, vomiting, or diarrhea. OBJECTIVE: VITAL SIGNS: Temperature 98.6. She is afebrile since 05/25. Pulse 71, respiratory rate 17, blood pressure 122/74, oxygen saturation 91% on room air. GENERAL: She is a young female sitting up in bed. She does not appear to be in any acute distress whatsoever. HEENT: Cranial nerves II through XII are grossly intact. She has moist mucous membranes. CARDIOVASCULAR: S1, S2 regular. RESPIRATORY: Clear. ABDOMEN: Benign. No costovertebral angle tenderness. EXTREMITIES: No clubbing, cyanosis or edema. LABORATORY DATA: WBC 6.4, hemoglobin 11, platelet count 139 up from 110. Chemistry panel: Sodium 142, potassium 4.1, chloride 113, bicarbonate 24, BUN 6, creatinine 0.6. MICROBIOLOGY: She has blood cultures from 05/25 which were positive for pansensitive E. coli, as well as urine culture from 05/25 and from the operating room (OR) that was pansensitive E. coli. Review of blood cultures on 05/26 were negative. IMAGING: She did have a CT scan at the time of admission on 05/25, which revealed mild, acute right-sided obstructive uropathy with a 3 mm calculus in the distal right ureter and 2 mm nonobstructing calculus in the right kidney. ASSESSMENT AND PLAN: This is a 20-year-old female with right-sided hydronephrosis, obstructive uropathy and severe sepsis secondary to urinary source, secondary to Escherichia coli bacteremia. 1. Severe sepsis secondary to urinary source. Urology results appreciated. She is status post double-J stent placement. Her symptoms have resolved at this point. 2. Lactic acidosis resolved. 3. Her acute renal failure has resolved. She is afebrile. She is at her functional baseline and medically stable for discharge home at this time. Given her gram-negative domingo bacteremia, she is to complete a 14-day course of antibiotics. DISPOSITION: The patient is being discharged home to the care of her family. She is to followup with her primary care provider (PCP) within seven days and urology within one week. Her activity and diet are prior to her admission. She is to return to the emergency room (ER) if her symptoms worsen. She has been provided prescriptions, to notify work and court that she has been ill in hospital for the days she has been here. MEDICATIONS AT TIME OF DISCHARGE: - ciprofloxacin 500 mg by mouth twice a day for 14 days TIME SPENT ON DISCHARGE: Greater than 30 minutes were spent organizing disposition.
== END 2016-05-28 11:28 | disposition home or self-care (01) | DRG 720 ==
LOC: M ED 15:28 → M ED INP 18:08 → M PCU 23:15 → M MSPAV 05-27 13:52
PROVIDERS: ADMIT Hospitalist; ATTEND Internal Medicine
PROC: 0T767DZ Dilation of Right Ureter with Intraluminal Device, Via Natural or Artificial Opening (ICD-10-PCS; principal; 2016-05-25 19:30)
DX: A41.51 Sepsis due to Escherichia coli [E. coli] (principal); N17.9 Acute kidney failure, unspecified; D69.6 Thrombocytopenia, unspecified; N13.6 Pyonephrosis; B96.20 Unspecified Escherichia coli [E. coli] as the cause of diseases classified elsewhere; D72.829 Elevated white blood cell count, unspecified; N39.0 Urinary tract infection, site not specified; J45.909 Unspecified asthma, uncomplicated; F17.210 Nicotine dependence, cigarettes, uncomplicated; R00.0 Tachycardia, unspecified; R65.20 Severe sepsis without septic shock

== ENCOUNTER → 2016-06-07 | Outpatient (CLI) | payer OTHER ==
[~2016-06-07] MED LIST: BACT800T5 PO; CIPR500T89 PO; FLOM5CAP PO; TRAM50TA2 PO; unknown antibiotic
[2016-06-07 11:55] LABS: MEAN CORPUSCULAR HEMOGLOBIN 29.1 pg (27.0-33.0); MEAN CORPUSCULAR HGB CONC 32.6 g/dl (32.0-36.5); MEAN CORPUSCULAR VOLUME 89.4 fl (80.0-96.0); RED CELL DISTRIBUTION WIDTH 14.8 % (11.5-14.5); WHITE BLOOD COUNT 10.3 K/mm3 (4.0-10.0)
[2016-06-07 11:58] LABS: INR 1.1
[2016-06-07 12:18] LABS: CONTROL LINE HCG INT CTR LINE PRESENT
[2016-06-07 12:39] LABS: ANION GAP 5 MEQ/L (8-16); BLOOD UREA NITROGEN 8 MG/DL (7-18); CALCIUM LEVEL 8.9 MG/DL (8.5-10.1); CARBON DIOXIDE LEVEL 30 MEQ/L (21-32); CHLORIDE LEVEL 105 MEQ/L (98-107); CREATININE FOR GFR 0.66 MG/DL (0.55-1.02); GLOMERULAR FILTRATION RATE > 60.0 (>60); GLUCOSE, FASTING 87 MG/DL (70-105); POTASSIUM SERUM 4.2 MEQ/L (3.5-5.1); SODIUM LEVEL 140 MEQ/L (136-145)
== END ==
LOC: M SMT 09:41
PROVIDERS: ATTEND Nurse Practitioner Women's Health
DX: Z01.818 Encounter for other preprocedural examination (principal); N13.2 Hydronephrosis with renal and ureteral calculous obstruction; N39.0 Urinary tract infection, site not specified

== ENCOUNTER → 2016-06-09 | Day surgery (SDC) | payer OTHER ==
[~2016-06-09] MED LIST changes: +BACTRIM 160MG/800MG DS TAB PO SCH; +CONRAY-60 60% 50ML VIAL (Q9961) As Ordered ONE; +KETOROLAC 60 MG/2 ML VIAL (J1885) As Ordered ONE; +LIDOCAINE 2% INJ 100 MG/5 ML SDV (FOR ANES.) As Ordered ONE; +LR 1,000 ML IV SCH; +MIDAZOLAM INJ 2 MG/2 ML VIAL (J2250) As Ordered ONE; +ONDANSETRON 4MG/2ML VIAL (J2405) As Ordered ONE; +ONDANSETRON 4MG/2ML VIAL (J2405) IV PRN; +PROPOFOL 200 MG/20 ML VIAL As Ordered ONE; +dexameTHASONE 4 MG/ML 1ML VIAL (J1100) As Ordered ONE; +ePHEDrine SULFATE 25 MG/5 ML(5MG/ML) SYRINGE As Ordered ONE; +fentaNYL 100 MCG/2 ML INJECTION (J3010) As Ordered ONE; +fentaNYL 100 MCG/2 ML INJECTION (J3010) IV PRN; +traMADol 50 MG TAB PO PRN
[2016-06-09 14:32] LABS: CONTROL LINE UCG INT CTR LINE PRESENT
[2016-06-09 18:30] VITALS: BP 123/76
--- NOTE | 2016-06-09 19:14 | REP ---
RETROGRADE PYELOGRAM, TWO VIEWS: HISTORY: Ureteral stone. Two portable radiographs were obtained. Contrast material is present in the right renal collecting system and ureter. There are no definite filling defects. Fluoro time: 43 seconds. IMPRESSION: Retrograde pyelogram as described above. Signed by Jack Murillo MD 06/09/2016 07:14 P
--- NOTE | 2016-06-10 17:00 | RO ---
DATE OF PROCEDURE: 06/09/2016 PREOPERATIVE DIAGNOSES: Right renal stone, right ureteral stone, and right double J stent. POSTOPERATIVE DIAGNOSES: Right double J stent, plus no ureteral stone found, plus right renal Juancho plaque mid-pole (pictures taken). FINDINGS: Right mid Juancho plaque. No ureteral stone found and right double J stent that was removed. SURGERY PERFORMED: Cystoscopy, plus right retrograde pyelogram, plus right flexible ureteroscopy, plus right double J stent removal. SURGEON: Dago Jiménez MD OPTICIAN APPRENTICE: Vel Marie, PGY-3 ANESTHESIA: General. COMPLICATIONS: None. ESTIMATED BLOOD LOSS: N/A. HISTORY OF PRESENT ILLNESS: 20-year-old female patient that about 1 month ago had right flank pain requiring stent placement as an emergency. She is here today for removal of the stent and also removal of the stone. For this reason, she has consented for a cystoscopy, plus right ureteroscopy, plus basket extraction of stone, possible laser stone lithotripsy, possible right double J stent exchange. PROCEDURE DESCRIPTION: In a patient under general anesthesia, in supine modified low lithotomy position, after prepping and draping the area concern, which included the entire genitalia and abdomen, we started by introducing a #21-Romanian cystoscope with a 30-degree lens under videoendoscopic guidance. 1:40 The urethra and bladder neck were totally normal. The bladder had no tumors, no stones, no foreign objects. A right double J stent was in good position. We then proceeded to grab it endoscopically and remove it out of the body of the patient. Then, we passed a Sensor guidewire through the ureter up to the kidney. Following this Sensor guidewire, we first introduced a semi-rigid ureteroscope, #7-Romanian in diameter, and looked for the distal ureteral stone 3 mm in diameter that was there in the past CT scan. We did formal semi-rigid ureteroscopy up to the proximal ureter. There was no stone left. We then proceeded to take this out and passed a flexible ureteroscope following the guidewire up to the kidney. We did a formal nephroscopy with a flexible ureteroscope after putting contrast into the kidney and ureter. We then did a formal nephroscopy with flexible ureteroscope, upper pole, midpole, and lower pole, and there were no stones found. The renal pelvis was empty of stones. There was a Juancho plaque of about 2 mm in diameter in the lower midpole, not in the lumen. We took pictures of it and put it in to the chart. We then did a retrograde ureteroscopy. There were no stones in the ureter. Since the ureter was wide and thick, we decided not to leave a stent and we took the guidewire out and the ureteroscope out. We then emptied the bladder with a cystoscope and took the cystoscope out. PLAN: The patient will go home today with antibiotic and pain medication. Followup in 2-3 weeks at [facility] [place].
== END | disposition home or self-care (01) ==
LOC: M SDC 14:04
PROVIDERS: ATTEND Urology
DX: N20.2 Calculus of kidney with calculus of ureter (principal); J45.909 Unspecified asthma, uncomplicated; Z88.1 Allergy status to other antibiotic agents; F17.210 Nicotine dependence, cigarettes, uncomplicated
CPT/HCPCS: 52310; 74420; 84703; C1726; C2617

== ENCOUNTER 2016-07-19 19:08 | Emergency (ER) | payer OTHER ==
[~2016-07-19] VITALS: Ht 160 cm; Wt 78.0 kg
[2016-07-19 19:08] VITALS: BP 123/67
[~2016-07-19 19:08] MED LIST changes: -BACTRIM 160MG/800MG DS TAB PO SCH; -CONRAY-60 60% 50ML VIAL (Q9961) As Ordered ONE; -KETOROLAC 60 MG/2 ML VIAL (J1885) As Ordered ONE; -LIDOCAINE 2% INJ 100 MG/5 ML SDV (FOR ANES.) As Ordered ONE; -LR 1,000 ML IV SCH; -MIDAZOLAM INJ 2 MG/2 ML VIAL (J2250) As Ordered ONE; -ONDANSETRON 4MG/2ML VIAL (J2405) As Ordered ONE; -ONDANSETRON 4MG/2ML VIAL (J2405) IV PRN; -PROPOFOL 200 MG/20 ML VIAL As Ordered ONE; -dexameTHASONE 4 MG/ML 1ML VIAL (J1100) As Ordered ONE; -ePHEDrine SULFATE 25 MG/5 ML(5MG/ML) SYRINGE As Ordered ONE; -fentaNYL 100 MCG/2 ML INJECTION (J3010) As Ordered ONE; -fentaNYL 100 MCG/2 ML INJECTION (J3010) IV PRN; -traMADol 50 MG TAB PO PRN
[2016-07-19] MEDS ORDERED: CETI10TA (19:15)
[2016-07-19] MEDS ORDERED: MONT10TA2 (19:15)
[2016-07-19] MEDS ORDERED: FLUT1SPR2 (19:15)
[2016-07-19] MEDS ORDERED: AMOX500C (19:15)
[2016-07-19] MEDS ORDERED: MUCI600T34 PO (19:15)
== END 2016-07-19 23:46 | disposition left against medical advice (07) ==
LOC: M ED 20:59
DX: Z71.1 Person with feared health complaint in whom no diagnosis is made (principal); Z53.21 Procedure and treatment not carried out due to patient leaving prior to being seen by health care provider

== ENCOUNTER → 2016-07-30 | Outpatient (CLI) | payer OTHER ==
[~2016-07-30] MED LIST changes: +AMOX500C; +CETI10TA; +FLUT1SPR2; +MONT10TA2; +MUCI600T34 PO
[2016-07-30 13:34] LABS: BASO % 0.7 % (0.0-1.0); EOS # 0.4 K/mm3 (0.0-0.50); EOS % 5.5 % (0.0-3.0); LARGE UNSTAINED CELL # 0.2 K/mm3 (0.0-0.4); LARGE UNSTAINED CELL % 2.6 % (0.0-4.0); LYMPH # 3.5 K/mm3 (1.5-6.5); LYMPH % 47.2 % (24.0-44.0); MEAN CORPUSCULAR HEMOGLOBIN 29.4 pg (27.0-33.0); MEAN CORPUSCULAR HGB CONC 33.7 g/dl (32.0-36.5); MEAN CORPUSCULAR VOLUME 87.2 fl (80.0-96.0); MONO # 0.5 K/mm3 (0.0-0.8); MONO % 6.9 % (0.0-5.0); NEUTROPHILS # 2.7 K/mm3 (1.8-7.7); NEUTROPHILS % 37.1 % (36.0-66.0); PLATELET COUNT, AUTOMATED 262 k/mm3 (150-450); RED CELL DISTRIBUTION WIDTH 14.4 % (11.5-14.5); WHITE BLOOD COUNT 7.3 K/mm3 (4.0-10.0)
[2016-07-30 13:56] LABS: HBsAg Prenatal NEGATIVE (NEGATIVE)
== END ==
LOC: M SMT 09:21
PROVIDERS: ATTEND Advanced Practice Midwife
DX: Z34.81 Encounter for supervision of other normal pregnancy, first trimester (principal)

== ENCOUNTER → 2016-09-16 | Outpatient (REF) | payer OTHER, SELFPAY ==
[~2016-09-16] MED LIST changes: +CIPR-249 PO; -CIPR500T89 PO; -MUCI600T34 PO; +MUCI600T37 PO; +REGL10TA6 PO; +ZITHTAB PO
== END ==
LOC: M LAB REF 11:26
PROVIDERS: ATTEND Advanced Practice Midwife
DX: Z34.82 Encounter for supervision of other normal pregnancy, second trimester (principal)

== ENCOUNTER → 2016-10-11 | Outpatient (CLI) | payer SELFPAY ==
--- NOTE | 2016-10-11 13:10 | REP ---
OB ULTRASOUND: Real-time sonographic evaluation of the gravid uterus performed utilizing transabdominal technique. There is a single living intrauterine gestation, estimated gestational age 18 weeks 3 days based on LMP with EDC 03/11/2017. Today's measurements indicate appropriate growth. BPD 41 mm = 18 weeks 3 days, 51st percentile HC 150 mm = 18 weeks 1 day, 40th percentile AC 122 mm = 17 weeks 6 days, 36th percentile FL 24 mm = 17 weeks 2 days, 12th percentile HC/AC ratio 1.23 within normal range. Estimated weight 203 grams, 19th percentile. Cervix closed and measures 4.7 cm in length. heart rate 151 beats per minute. SEEN/GROSSLY UNREMARKABLE Lateral ventricles Yes Posterior fossa Yes Upper lip Yes Four-chamber heart Yes LVOT Yes RVOT Yes Stomach Yes Cord insertion Yes Three vessel cord Yes Kidneys Yes Bladder Yes Spine Yes position vertex. Placenta anterior and grade 0 with no previa or abruption. Amniotic fluid within normal limits. Signed by Matthew Barahona MD 10/12/2016 08:40 A
== END ==
LOC: M RAD 11:12
PROVIDERS: ATTEND Advanced Practice Midwife
DX: Z34.82 Encounter for supervision of other normal pregnancy, second trimester (principal)

== ENCOUNTER → 2016-10-29 | Outpatient (REF) | payer MEDICAID, OTHER, SELFPAY | LOC: M LAB REF 17:04 | PROVIDERS: ATTEND Advanced Practice Midwife | DX: O98.211 Gonorrhea complicating pregnancy, first trimester (principal); Z3A.00 Weeks of gestation of pregnancy not specified ==

== ENCOUNTER 2016-12-01 11:55 | Emergency (ER) | payer MEDICAID, OTHER, SELFPAY ==
[~2016-12-01] VITALS: Ht 162.6 cm; Wt 77.3 kg
[~2016-12-01 11:55] MED LIST changes: -REGL10TA6 PO; -ZITHTAB PO
[2016-12-01] MEDS ORDERED: IPRATROPIUM 0.5MG/ALBUTEROL 2.5MG INH SOL UD 3ML (DUONEB)(J7620) NEB ONE (13:00)
[2016-12-01] MEDS ORDERED: ONDANSETRON 4 MG ORAL DISINTEGRATING TAB (S0181) PO ONE (13:00)
[2016-12-01] MEDS ORDERED: guaiFENesin SYRUP 200 MG/10 ML UDC PO ONE (13:00)
[2016-12-01] MEDS ORDERED: ZITHTAB PO (13:52)
[2016-12-01] MEDS ORDERED: REGL10TA6 PO (13:52)
[2016-12-01 14:04] VITALS: BP 130/73
== END 2016-12-01 14:13 | disposition home or self-care (01) ==
LOC: M ED 11:55
DX: O99.512 Diseases of the respiratory system complicating pregnancy, second trimester (principal); O21.9 Vomiting of pregnancy, unspecified; O99.89 Other specified diseases and conditions complicating pregnancy, childbirth and the puerperium; R06.02 Shortness of breath; O99.52 Diseases of the respiratory system complicating childbirth; Z3A.25 25 weeks gestation of pregnancy; Z87.442 Personal history of urinary calculi; Z79.899 Other long term (current) drug therapy; Z88.0 Allergy status to penicillin

== ENCOUNTER 2017-01-14 10:51 | Outpatient (CLI) | payer SELFPAY ==
[~2017-01-14] VITALS: Ht 160 cm; Wt 80.9 kg
[~2017-01-14 10:51] MED LIST changes: +REGL10TA6 PO; +ZITHTAB PO
[2017-01-14 11:05] VITALS: BP 110/64
[2017-01-14] MEDS ORDERED: ACETAMINOPHEN 500 MG TAB PO ONE (11:30)
[2017-01-14 12:11] VITALS: BP 103/62
[2017-01-14 13:03] VITALS: BP 107/63
== END 2017-01-14 13:45 | disposition home or self-care (01) ==
LOC: M LDO 10:51
PROVIDERS: ATTEND Specialist
DX: O26.893 Other specified pregnancy related conditions, third trimester (principal); Z3A.32 32 weeks gestation of pregnancy; M25.551 Pain in right hip; R10.2 Pelvic and perineal pain; Z88.1 Allergy status to other antibiotic agents

== ENCOUNTER 2017-01-17 05:33 | Outpatient (CLI) | payer SELFPAY ==
[~2017-01-17] VITALS: Ht 160 cm; Wt 80.1 kg
== END 2017-01-17 06:20 | disposition home or self-care (01) ==
LOC: M LDO 05:33
PROVIDERS: ATTEND Specialist
DX: O26.853 Spotting complicating pregnancy, third trimester (principal); Z3A.32 32 weeks gestation of pregnancy; Z88.1 Allergy status to other antibiotic agents

== ENCOUNTER → 2017-02-10 | Outpatient (REF) | payer OTHER, SELFPAY | LOC: M LAB REF 12:51 | PROVIDERS: ATTEND Specialist | DX: Z34.83 Encounter for supervision of other normal pregnancy, third trimester (principal); Z36.85 Encounter for antenatal screening for Streptococcus B ==

== ENCOUNTER 2017-03-03 03:48 | Inpatient (IN) | payer MEDICAID, SELFPAY, OTHER ==
[2017-03-03 06:18] LABS: MEAN CORPUSCULAR HEMOGLOBIN 28.6 pg (27.0-33.0); MEAN CORPUSCULAR HGB CONC 33.4 g/dl (32.0-36.5); MEAN CORPUSCULAR VOLUME 85.5 fl (80.0-96.0); PLATELET COUNT, AUTOMATED 215 10^3/uL (150-450); RED CELL DISTRIBUTION WIDTH 14.8 % (11.5-14.5); WHITE BLOOD COUNT 12.6 10^3/uL (4.0-10.0)
[2017-03-03] MEDS: BUTORPHANOL 2 MG/ML INJ (J0595) IV (06:20)
[2017-03-03] MEDS: PENICILLIN G POTASSIUM IV 5 MU in D5W MINI-BAG PLUS 100 ML IV (06:21)
[2017-03-03] MEDS: PROMETHAZINE INJ 25 MG/ML VIAL (J2550) IV (06:21)
[2017-03-03] MEDS ORDERED: LR 1,000 ML IV (07:53)
[2017-03-03] MEDS: LACTATED RINGER'S 1000 ML IV (07:53)
[2017-03-03] MEDS ORDERED: FENTANYL 2MCG/ML ROPIVACAINE 0.2% IN 0.9% NACL 200ML IVBAG As Ordered (08:52)
[2017-03-03] MEDS: PENICILLIN G POTASSIUM IV 2.5 MU in APPROPRIATE DILUENT 1 EA IV (10:03)
[2017-03-03] MEDS ORDERED: EPIDURAL/PCA KEYS XX (11:00)
[2017-03-03] MEDS ORDERED: diphenhydrAMINE INJ 50MG/ML VIAL (J1200) IV (11:00)
[2017-03-03] MEDS ORDERED: ePHEDrine SULFATE 25 MG/5 ML(5MG/ML) SYRINGE IV (11:00)
[2017-03-03] MEDS ORDERED: ONDANSETRON 4MG/2ML VIAL (J2405) IV (11:00)
[2017-03-03] MEDS ORDERED: REFRIGERATOR IV KEYS XX (11:00)
[2017-03-03] MEDS ORDERED: EPIDURAL COMMENT XX (11:00)
[2017-03-03] MEDS ORDERED: LACTATED RINGER'S 1000 ML IV (11:00)
[2017-03-03] MEDS ORDERED: FENTANYL/ROPIVACAINE/NACL BAG 200 ML EPIDURAL (11:00)
[2017-03-03] MEDS ORDERED: NALOXONE INJ 0.4 MG/1 ML VIAL (J2310) IV (11:00)
[2017-03-03] MEDS ORDERED: OXYTOCIN 30 UNITS IN 0.9% NaCl 500ML IV BAG (J2590) As Ordered (11:18)
[2017-03-03] MEDS ORDERED: OXYTOCIN DRIP 30 UNITS in APPROPRIATE DILUENT 1 EA IV (11:30)
[2017-03-03] MEDS ORDERED: RHOGAM 300 MCG (1500 IU) INJ (J2790) IM (12:45)
[2017-03-03] MEDS ORDERED: METHYLERGONOVINE MALEATE 0.2 MG TAB PO (12:45)
[2017-03-03] MEDS: OXYTOCIN DRIP 30 UNITS in APPROPRIATE DILUENT 1 EA IV (12:45)
[2017-03-03] MEDS ORDERED: DIBUCAINE 1% OINTMENT 30GM TOP (12:45)
[2017-03-03] MEDS ORDERED: MEASLES,MUMPS,RUBELLA VACCINE INJ (MMR-II) (90707) SC (12:45)
[2017-03-03] MEDS: IBUPROFEN 800 MG TAB PO (17:09)
[2017-03-03] MEDS: ACETAMINOPHEN 500 MG TAB PO (19:36)
[2017-03-04] MEDS: IBUPROFEN 800 MG TAB PO ×2 (05:51→21:51)
[2017-03-04] MEDS: PRENATAL VITAMINS CHEWABLE TABLET PO (09:00)
[2017-03-04] MEDS: DOCUSATE SODIUM 100 MG CAP PO (21:50)
[2017-03-05] MEDS: PRENATAL VITAMINS CHEWABLE TABLET PO (08:15)
[2017-03-09 14:21] LABS: GC Carboxy THC 12 ng/mL (Cutoff=10)
== END 2017-03-05 11:10 | disposition home or self-care (01) | DRG 560 ==
LOC: M LDO 03:48 → M LDI 07:49 → M OBS 14:03
PROVIDERS: Advanced Practice Midwife
PROC: 10E0XZZ Delivery of Products of Conception, External Approach (ICD-10-PCS; principal; 2017-03-03)
PROC: 10907ZC Drainage of Amniotic Fluid, Therapeutic from Products of Conception, Via Natural or Artificial Opening (ICD-10-PCS; 2017-03-03)
DX: O99.824 Streptococcus B carrier state complicating childbirth (principal); F17.210 Nicotine dependence, cigarettes, uncomplicated; Z37.0 Single live birth; Z3A.38 38 weeks gestation of pregnancy; Z88.1 Allergy status to other antibiotic agents; O99.334 Smoking (tobacco) complicating childbirth

== ENCOUNTER → 2017-03-23 | Outpatient (CLI) | payer MEDICAID, SELFPAY | LOC: M OUTALCOH 08:09 | DX: F12.20 Cannabis dependence, uncomplicated (principal) ==

== ENCOUNTER 2017-04-05 11:04 | Outpatient (RCR) | payer MEDICAID, SELFPAY | END 2017-04-06 | LOC: M OUTALCOH 11:04 | DX: F12.20 Cannabis dependence, uncomplicated (principal); F17.200 Nicotine dependence, unspecified, uncomplicated ==

== ENCOUNTER 2017-04-12 16:00 | Outpatient (RCR) | payer MEDICAID | END 2017-05-04 | LOC: M OUTALCOH 04-19 16:00 | DX: F12.20 Cannabis dependence, uncomplicated (principal); F17.200 Nicotine dependence, unspecified, uncomplicated ==

== ENCOUNTER 2017-09-19 16:52 | Emergency (ER) | payer OTHER, MEDICAID | END 2017-09-19 18:55 | disposition home or self-care (01) | LOC: M ED 16:52 | DX: M76.61 Achilles tendinitis, right leg (principal); M25.561 Pain in right knee; J45.909 Unspecified asthma, uncomplicated; F41.9 Anxiety disorder, unspecified; F32.9 Major depressive disorder, single episode, unspecified; Z87.442 Personal history of urinary calculi; Z88.1 Allergy status to other antibiotic agents | CPT/HCPCS: 73564 ==

== ENCOUNTER 2019-10-23 21:07 | Emergency (ER) | payer OTHER ==
[~2019-10-23] VITALS: Ht 160 cm; Wt 64.2 kg
[~2019-10-23 21:07] MED LIST changes: +ACE-33 XX; +ACE-52 XX; +FLOM0.4C39 PO; -FLOM5CAP PO; +IBUP-1114 PO; +MAPA500T2 PO; +MOBI4TAB PO; -MONT10TA2; +MONT10TA4; +PRENTAB9 PO
[2019-10-23] MEDS ORDERED: KETOROLAC TROMETHAMINE 10 MG TAB PO ONE (23:00)
[2019-10-23] MEDS ORDERED: CYCLOBENZAPRINE 10MG TABLET PO ONE (23:00)
[2019-10-24] MEDS ORDERED: CYCL5TAB PO (01:26)
[2019-10-24] MEDS ORDERED: NAPR-885 PO (01:26)
[2019-10-24 01:38] VITALS: BP 123/76
--- NOTE | 2019-10-24 11:39 | REPVR ---
PROCEDURE INFORMATION: Exam: XR Lumbosacral Spine, 4 or 5 Views Exam date and time: 10/23/2019 11:59 PM Age: 24 years old Clinical indication: Low back pain; Additional info: Dropped on back/pain TECHNIQUE: Imaging protocol: XR of the lumbosacral spine, 4 or 5 views. COMPARISON: CT ABD PELVIS W/O CONTRAST 05/25/2016 1:39 PM FINDINGS: Vertebrae: There is no evidence of fracture. Bony elements and disc spaces are preserved. Soft tissues: Unremarkable. IMPRESSION: There is no evidence of fracture. Electronically signed by: Henry Qureshi On 10/24/2019 11:39:52 AM
== END 2019-10-24 01:48 | disposition home or self-care (01) ==
LOC: M ED 21:07
DX: S39.012A Strain of muscle, fascia and tendon of lower back, initial encounter (principal); X58.XXXA Exposure to other specified factors, initial encounter; Y92.9 Unspecified place or not applicable; Y93.72 Activity, wrestling; Y99.9 Unspecified external cause status; J45.909 Unspecified asthma, uncomplicated; F41.9 Anxiety disorder, unspecified; F32.9 Major depressive disorder, single episode, unspecified; Z87.442 Personal history of urinary calculi; F17.200 Nicotine dependence, unspecified, uncomplicated

== ENCOUNTER → 2020-04-23 | Outpatient (REF) | payer OTHER ==
[~2020-04-23] MED LIST changes: +CYCL5TAB PO; +MONT10TA10; -MONT10TA4; +NAPR-885 PO
[2020-04-23 17:13] LABS: APPEARANCE, URINE CLOUDY (CLEAR); BACTERIA, URINE AUTO NEGATIVE (NEGATIVE); BILIRUBIN, URINE AUTO NEGATIVE (NEGATIVE); BLOOD, URINE BLOOD 1+ (NEGATIVE); COLOR, URINE YELLOW (YELLOW); GLUCOSE, URINE (UA) AUTO NEGATIVE (NEGATIVE); KETONE, URINE AUTO NEGATIVE (NEGATIVE); LEUKOCYTE ESTERASE, URINE AUTO NEGATIVE (NEGATIVE); MUCUS, URINE SMALL (NEGATIVE); NITRITE, URINE AUTO NEGATIVE (NEGATIVE); PROTEIN, URINE AUTO NEGATIVE (NEGATIVE); RBC, URINE AUTO 3 /HPF (0-3); SPECIFIC GRAVITY URINE AUTO 1.021 (1.002-1.035); SQUAMOUS EPITHELIAL CELL UR AU 31 /HPF (0-6); UROBILINOGEN, URINE AUTO 0.2 mg/dL (0.0-2.0); WBC, URINE AUTO 2 /HPF (0-3)
== END ==
LOC: M LAB REF 16:14
PROVIDERS: ATTEND Physician Assistant Medical
DX: R30.0 Dysuria (principal)

== ENCOUNTER → 2021-02-05 | Outpatient (CLI) | payer OTHER ==
--- NOTE | 2021-02-05 16:29 | REP ---
INDICATION: PAIN IN RIGHT WRIST AND ELBOW. COMPARISON: None. TECHNIQUE: Four views FINDINGS: No acute fracture or destructive osseous lesion. IMPRESSION: No acute osseous abnormality <Electronically signed by Renan De La Cruz > 02/05/21 [id number]
--- NOTE | 2021-02-05 16:30 | REP ---
INDICATION: PAIN IN RIGHT WRIST AND ELBOW. COMPARISON: None TECHNIQUE: Four views FINDINGS: There is no acute fracture, dislocation, subluxation, or joint effusion. IMPRESSION: No acute osseous abnormality. <Electronically signed by Renan De La Cruz > 02/05/21 [id number]
== END ==
LOC: M RAD 14:29
PROVIDERS: ATTEND Family Medicine Addiction Medicine
DX: M25.531 Pain in right wrist (principal); M25.521 Pain in right elbow

== ENCOUNTER 2021-11-22 13:59 | Emergency (ER) | payer OTHER ==
[~2021-11-22] VITALS: Ht 160 cm; Wt 81.0 kg
[~2021-11-22 13:59] MED LIST changes: -MONT10TA10; +MONT10TA97
[2021-11-22] MEDS ORDERED: ALBU8.5H (14:07)
[2021-11-22] MEDS ORDERED: IBUPROFEN 800 MG TAB PO ONE (15:00)
[2021-11-22] MEDS ORDERED: ACETAMINOPHEN TAB 650MG DOSE (2X325MG) PO ONE (15:00)
[2021-11-22 15:26] LABS: RSV AMPLIFICATION NEGATIVE (NEGATIVE)
[2021-11-22 15:53] VITALS: BP 124/81
== END 2021-11-22 15:55 | disposition home or self-care (01) ==
LOC: M ED 13:59
DX: U07.1 COVID-19 (principal); M54.50 Low back pain, unspecified; J45.909 Unspecified asthma, uncomplicated; Z88.1 Allergy status to other antibiotic agents

== ENCOUNTER 2022-01-30 15:56 | Emergency (ER) | payer OTHER ==
[~2022-01-30] VITALS: Ht 160 cm; Wt 72.1 kg
[2022-01-30 15:56] VITALS: BP 117/73
[~2022-01-30 15:56] MED LIST changes: +ALBU8.5H
[2022-01-30] MEDS ORDERED: BENZ200C70 PO (16:36)
== END 2022-01-30 17:55 | disposition home or self-care (01) ==
LOC: M ED 15:56
DX: J09.X2 Influenza due to identified novel influenza A virus with other respiratory manifestations (principal); F17.200 Nicotine dependence, unspecified, uncomplicated; Z88.1 Allergy status to other antibiotic agents; Z79.51 Long term (current) use of inhaled steroids; Z79.899 Other long term (current) drug therapy

== ENCOUNTER → 2023-12-23 | Outpatient (CLI) | payer OTHER ==
[~2023-12-23] MED LIST changes: +BENZ200C70 PO; +DEPO150I12 IM
== END ==
LOC: M RAD 11:50
PROVIDERS: ATTEND Family Medicine Addiction Medicine
DX: M54.50 Low back pain, unspecified (principal); M25.561 Pain in right knee

== ENCOUNTER 2023-12-26 17:35 | Emergency (ER) | payer OTHER, SELFPAY ==
[~2023-12-26] VITALS: Ht 157.5 cm; Wt 69.2 kg
[~2023-12-26 17:35] MED LIST changes: -DEPO150I12 IM
[2023-12-26 17:42] VITALS: TEMP 98.2
[2023-12-26] MEDS ORDERED: DEPO150I12 IM (18:16)
[2023-12-26 19:48] VITALS: BP 131/71; O2SAT 98
== END 2023-12-26 19:51 | disposition home or self-care (01) ==
LOC: M ED 17:35
DX: B34.9 Viral infection, unspecified (principal); J45.909 Unspecified asthma, uncomplicated; Z88.1 Allergy status to other antibiotic agents; Z79.52 Long term (current) use of systemic steroids; Z79.899 Other long term (current) drug therapy

== ENCOUNTER → 2024-12-05 | Outpatient (REF) | payer OTHER, SELFPAY ==
[~2024-12-05] MED LIST changes: -CYCL5TAB PO; +CYCL5TAB4 PO; +DEPO150I12 IM; -FLOM0.4C39 PO; +TAMS-18 PO
[2024-12-05 13:16] LABS: CREATININE, URINE 94.3 MG/DL; MALB URINE SIEMENS 6.0 MG/L; MAU/CREAT RATIO 6.3 MCG/MG (0.0-30.0)
[2024-12-05 15:00] LABS: ALT/SGPT 23 U/L (7.0-40); AST/SGOT 10 U/L (<34); CALCIUM LEVEL 8.6 MG/DL (8.5-10.1); CARBON DIOXIDE LEVEL 27 MMOL/L (20-31); CHLORIDE LEVEL 108 MMOL/L (98-107); CHOLESTEROL LEVEL 155 MG/DL (<200); CHOLESTEROL RISK RATIO 3.53 (<5); CREATININE FOR GFR 0.65 MG/DL (0.55-1.30); GLOMERULAR FILTRATION RATE > 90.0 (>60); LDL CHOLESTEROL 101.3 MG/DL (<100); NON-HDL-C 111.1 MG/DL; POTASSIUM SERUM 4.4 MMOL/L (3.5-5.1); SODIUM LEVEL 138 MMOL/L (136-145); TRIGLYCERIDES LEVEL 49 MG/DL (<150)
[2024-12-05 15:34] LABS: ESTIMATED AVERAGE GLUCOSE 103.0 MG/DL (60-110)
== END ==
LOC: M LAB REF 11:44
PROVIDERS: ATTEND Family Medicine Addiction Medicine
DX: Z00.00 Encounter for general adult medical examination without abnormal findings (principal)

== ENCOUNTER → 2025-01-01 | Outpatient (REF) | payer OTHER ==
[2025-01-01 18:35] LABS: PLATELET COUNT, AUTOMATED 317 10^3/uL (150-450)
== END ==
LOC: M LAB REF 16:51
PROVIDERS: ATTEND Student in an Organized Health Care Education/Training Program
DX: R19.5 Other fecal abnormalities (principal)

== ENCOUNTER → 2025-01-22 | Outpatient (REF) | payer OTHER | LOC: M LAB REF 12:04 | PROVIDERS: ATTEND Student in an Organized Health Care Education/Training Program | DX: R19.5 Other fecal abnormalities (principal) ==